=== PATIENT | female | born 1940 | race Caucasian/White ===

== ENCOUNTER 2022-02-11 08:30 | Outpatient (CLI) | payer SELFPAY ==
--- NOTE | 2022-02-11 08:30 | RT.EKG_ITS ---
APPROVED REPORT Exam: Resting ECG Reason for Exam: afib Patient Location: O HR:56 bpm ECG Measurements Heart Rate 56 AXIS OH 163 P 70 QRSd 80 QRS -3 QT 419 T 57 QTc 405 Conclusion Sinus rhythm...normal P axis, V-rate 50- 99 Abnormal R-wave progression, early transition...QRS area>0 in V2
== END 2022-02-11 08:31 | disposition home or self-care (01) ==
LOC: DI.CARD 08:31
PROVIDERS: PCP Nurse Practitioner Family; Visit Provider Internal Medicine Cardiovascular Disease
DX: I48.91 Unspecified atrial fibrillation (principal); R94.31 Abnormal electrocardiogram [ECG] [EKG]
CPT/HCPCS: 93010

== ENCOUNTER → 2022-06-24 09:52 | Outpatient (BNVA) | payer MEDICARE, OTHER, SELFPAY | PROVIDERS: PCP Nurse Practitioner Family; Referring Provider Nurse Practitioner Family; Visit Provider Internal Medicine Cardiovascular Disease | DX: I48.91 Unspecified atrial fibrillation (principal); Z79.01 Long term (current) use of anticoagulants; I10 Essential (primary) hypertension | CPT/HCPCS: 99214; 99213 ==

== ENCOUNTER → 2022-12-23 09:46 | Outpatient (BNVA) | payer MEDICARE, OTHER, SELFPAY | PROVIDERS: PCP Nurse Practitioner Family; Referring Provider Nurse Practitioner Family; Visit Provider Internal Medicine Cardiovascular Disease | DX: I48.0 Paroxysmal atrial fibrillation (principal); Z79.01 Long term (current) use of anticoagulants; E11.9 Type 2 diabetes mellitus without complications; I10 Essential (primary) hypertension | CPT/HCPCS: 99214 ==

== ENCOUNTER → 2023-06-30 09:42 | Outpatient (BNVA) | payer MEDICARE, OTHER, SELFPAY | PROVIDERS: PCP Nurse Practitioner Family; Referring Provider Nurse Practitioner Family; Visit Provider Internal Medicine Cardiovascular Disease | DX: I25.10 Atherosclerotic heart disease of native coronary artery without angina pectoris (principal); I48.0 Paroxysmal atrial fibrillation | CPT/HCPCS: 99213 ==

== ENCOUNTER → 2023-08-27 01:46 | Outpatient (CLI) | payer MEDICARE, OTHER, SELFPAY ==
--- NOTE | 2023-08-27 07:15 | DI.NM_ITS ---
APPROVED REPORT Exam: Pharmacologic Patient Location: Out-Patient Room/Bed: Stress Nurse: Estefani Mart RN and Arti Velazquez RN Ordering Provider:OTTO CRAWFORD, Contact Number: [phone] BMI: 30.17 Baseline Rhythm: Sinus Bradycardia Indications: Exertional Shortness of Breath and Chest Discomfort; Coronary Artery Disease Medical History Medical History: Coronary Artery Disease; Diabetes Mellitus Type 2; Vertigo; SVT; Major Depressive Di sorder; Asthma; Atrial Fibrillation; Generalized Anxiety Disorder; Hypertension; Hyperlipidemia; Inso mnia. Cardiac Medications: Metoprolol Tartrate; Metformin; Losartan; Hydrochlorothiazide; Apixaban. Allergies: WICHO Inhibitors; Codeine. Cardiac Risk Factors: Family History; Hypertension; Hyperlipidemia; CVD; Diabetes; Asthma; Former Smo ker; Obesity. Previous Cardiac Procedures: None. Pretest Chest Pain Characteristics: None. Exercise History: Sedentary. Physical Disabilities: Recent right knee replacement; difficulty with walking; dizziness. Lung Sounds: Clear bilaterally throughout, anterior and posterior. Heart Sounds: S1/S2. Stress Test Details Test: Pharmacologic stress testing performed using 0.4 mg of regadenoson per 5 mL given IV over 10 s econds. Reason for pharmacologic stress test: physical limitation; recent right knee replacement; difficult y with walking; dizziness.. Nuclear Acquisition: Rest Tc-99m/Stress Tc-99m 1 day Rest Isotope: Tc-99m Sestamibi. Dose: 10.5 Date: 08/27/2023 Injection Time: 0915 Stress Isotope: Tc-99m Sestamibi. Dose: 32.8 Date: 08/27/2023 Injection Time: 1050 HR Resting HR Supine: 48 bpm Max Heart Rate (APMHR): 138.259349 bpm Target HR (85% APMHR): 117.605808 bpm Max HR Achieved: 78 bpm % of APMHR: 56.52 Recovery HR: 63 bpm BP Resting BP Supine: 182/72 mmHg Max BP: 182/72 mmHg Recovery BP: 160/58 mmHg ECG Resting ECG: Sinus Bradycardia Ectopy: Rare PVC's. Stress ECG: Sinus Rhythm ST Change: Nondiagnostic low heart rate Arrhythmia: None. Recovery ECG: Sinus Rhythm Recovery ST Change: Nondiagnostic low heart rate Recovery Arrhythmia: None. Clinical Stress Symptoms: Headache; Moderate SOB. Angina Score: None Rate Pressure Product: [id number] Stress ECG Conclusion 1. Resting electrocardiogram showed poor R wave progression 2. Patient underwent testing using pharmacologic stress with regadenoson 3. Peak heart rate achieved was 57% of predicted for age 4. The electrocardiographic portion of the test was nondiagnostic 5. See MPI report Stress Test Summary STAGE HR BP SpO2 Symptoms NOTES Supine 48 182/72 Pt. reporting dizziness; decision made to perform laying lexiscan test. 1 min post Lexiscan injection 76 152/66 Pt. reports feeling ...lousy. Pt. reports headache and mod erate SOB. 3 min post Lexiscan injection 73 158/56 Pt. reports that she still has a headache and mild SOB. 6 min post Lexiscan injection 63 160/58 Pt. reports that she still has a headache, but that all SOB has resolved. Staff to provide pt. with coffee to help with the headache. MPI Conclusion Myocardial perfusion is normal. There is no ischemia or evidence of prior infarction Ejection fraction is 65% with normal wall motion Radiologist Interpretation Radiologist agrees with Color Buffer's Interpretation. Radiologist Interpretation by: Marquez Link MD Interpretation Date/Time: 08/27/2023 19:09:42
[2023-08-27] MEDS: Regadenoson 0.4 MG/5 ML SYR IVP (10:49)
== END ==
PROVIDERS: PCP Nurse Practitioner Family; Visit Provider Internal Medicine Cardiovascular Disease
DX: I25.10 Atherosclerotic heart disease of native coronary artery without angina pectoris (principal)
CPT/HCPCS: 78452; 93016; 93018; 93017; J2785

== ENCOUNTER → 2023-09-03 13:45 | Outpatient (BNVA) | payer MEDICARE, OTHER, SELFPAY | PROVIDERS: PCP Nurse Practitioner Family; Visit Provider Internal Medicine Cardiovascular Disease | DX: I25.10 Atherosclerotic heart disease of native coronary artery without angina pectoris (principal); I48.0 Paroxysmal atrial fibrillation; I10 Essential (primary) hypertension | CPT/HCPCS: 99213 ==

== ENCOUNTER 2024-06-02 09:48 | Outpatient (CLI) | payer MEDICARE, OTHER, SELFPAY ==
--- NOTE | 2024-06-02 09:45 | RT.EKG_ITS ---
APPROVED REPORT Exam: Resting ECG Reason for Exam: afib Patient Location: O HR:52 bpm ECG Measurements Heart Rate 52 AXIS [place] 174 P 51 QRSd 101 QRS -38 QT 447 T 56 QTc 416 Conclusion Sinus rhythm...normal P axis, V-rate 50- 99 Left anterior fascicular block Late transition
== END 2024-06-02 09:49 | disposition home or self-care (01) ==
LOC: DI.CARD 09:48
PROVIDERS: PCP Nurse Practitioner Family; Visit Provider Internal Medicine Cardiovascular Disease
DX: I25.10 Atherosclerotic heart disease of native coronary artery without angina pectoris (principal); I48.0 Paroxysmal atrial fibrillation
CPT/HCPCS: 93010

== ENCOUNTER → 2024-06-02 13:24 | Outpatient (BNVA) | payer MEDICARE, SELFPAY | PROVIDERS: PCP Nurse Practitioner Family; Referring Provider Nurse Practitioner Family; Visit Provider Internal Medicine Cardiovascular Disease | DX: I44.4 Left anterior fascicular block (principal); I48.0 Paroxysmal atrial fibrillation; I25.10 Atherosclerotic heart disease of native coronary artery without angina pectoris | CPT/HCPCS: 93005; 99213 ==